=== PATIENT | male | born 1935 | race Hispanic/Latino ===

== ENCOUNTER 2019-03-14 15:56 | Outpatient (CLI) | payer OTHER ==
[2019-03-14 16:32] LABS: PLATELET COUNT 254 K/uL (142-355)
[2019-03-14 17:07] LABS: POTASSIUM 4.1 mmol/L (3.6-5.2)
== END 2019-03-14 20:17 | disposition home or self-care (01) ==
LOC: LABW 15:56
PROVIDERS: Internal Medicine
DX: Z00.00 Encounter for general adult medical examination without abnormal findings (principal); Z79.899 Other long term (current) drug therapy
CPT/HCPCS: 36415; 80053; 80061; 82306; 82607; 84153; 84443; 85027

== ENCOUNTER 2020-02-21 15:55 | Outpatient (CLI) | payer BC | END 2020-02-21 23:19 | disposition home or self-care (01) | LOC: LABW 15:55 | DX: Z00.00 Encounter for general adult medical examination without abnormal findings (principal); Z12.5 Encounter for screening for malignant neoplasm of prostate; E03.9 Hypothyroidism, unspecified | CPT/HCPCS: 36415; 82306; 84153; 84439; 84443 ==

== ENCOUNTER 2020-03-03 18:15 | Outpatient (CLI) | payer OTHER | END 2020-03-03 19:14 | disposition home or self-care (01) | LOC: RAD 18:15 | DX: Z00.00 Encounter for general adult medical examination without abnormal findings (principal) | CPT/HCPCS: 81000 ==

== ENCOUNTER 2020-09-05 11:52 | Emergency (ER) | payer OTHER ==
[~2020-09-05] VITALS: Ht 167.6 cm; Wt 69.4 kg
[2020-09-05 12:10] VITALS: TEMP 98.5
[2020-09-05 12:56] LABS: PLATELET COUNT 233 K/uL (142-355)
[2020-09-05 13:11] LABS: PARTIAL THROMBOPLASTIN TIME 28.1 SECONDS (24.5-33.6)
[2020-09-05 13:46] VITALS: BP 133/85
== END 2020-09-05 13:57 | disposition home or self-care (01) ==
LOC: ED 11:52
PROVIDERS: Family Medicine
DX: I63.9 Cerebral infarction, unspecified (principal); I10 Essential (primary) hypertension
CPT/HCPCS: 36415; 80053; 85027; 85610; 85730; 96374; 99284; J0360

== ENCOUNTER 2020-09-17 10:35 | Emergency (ER) | payer OTHER ==
[~2020-09-17] VITALS: Ht 167.6 cm; Wt 69.4 kg
[2020-09-17 10:39] VITALS: TEMP 98
[2020-09-17 11:24] LABS: PLATELET COUNT 190 K/uL (142-355)
[2020-09-17 11:30] LABS: POTASSIUM 3.8 mmol/L (3.6-5.2)
[2020-09-17 12:12] VITALS: BP 156/82
== END 2020-09-17 13:55 | disposition short-term general hospital (02) ==
LOC: ED 10:35
PROVIDERS: Family Medicine
DX: R41.82 Altered mental status, unspecified (principal); R77.8 Other specified abnormalities of plasma proteins; Z11.52 Encounter for screening for COVID-19
CPT/HCPCS: 80053; 81000; 82550; 82553; 83605; 84484; 85027; 87635; 93005; 99284; U0003

== ENCOUNTER 2020-10-03 15:10 | Observation (INO) | payer OTHER ==
[2020-10-03] VITALS (7 sets, daily range): BP systolic 110–147; BP diastolic 45–68; TEMP 96.5–97.8; Ht 162.6 cm; Wt 61.3 kg
[~2020-10-03] VITALS: Ht 162.6 cm; Wt 61.3 kg
[2020-10-03 15:55] LABS: PLATELET COUNT 286 K/uL (142-355)
[2020-10-03 16:04] LABS: POTASSIUM 4.7 mmol/L (3.6-5.2); SODIUM 140 mmol/L (136-145)
[2020-10-03] MEDS ORDERED: ASA LOW DOSE81 MG PO (23:48)
[2020-10-03] MEDS ORDERED: LIPITOR80 MG PO (23:49)
[2020-10-03] MEDS ORDERED: CARV3.12 PO (23:50)
[2020-10-03] MEDS ORDERED: FURO20TA67 PO (23:50)
[2020-10-03] MEDS ORDERED: LISI20TA11 PO (23:51)
[2020-10-04] VITALS: BP 141/69; TEMP 98.7
[2020-10-04 04:00] VITALS: BP 146/79; TEMP 98.7
[2020-10-04 08:00] VITALS: BP 136/68; TEMP 98.3
[2020-10-04 11:34] LABS: PLATELET COUNT 210 K/uL (142-355)
[2020-10-04 11:47] LABS: POTASSIUM 4.5 mmol/L (3.6-5.2)
[2020-10-04 12:00] VITALS: BP 118/63; TEMP 98.7
[2020-10-04 16:00] VITALS: BP 97/52; TEMP 99
[2020-10-04 20:00] VITALS: BP 113/61; TEMP 98.8
[2020-10-05] VITALS: BP 92/46; TEMP 98.6
[2020-10-05 04:00] VITALS: BP 122/53; TEMP 99.6
[2020-10-05 08:00] VITALS: BP 98/53; TEMP 101.3
[2020-10-05 12:00] VITALS: BP 96/46; TEMP 101.2
[2020-10-05 16:00] VITALS: BP 91/42; TEMP 99.2
== END 2020-10-05 19:10 | disposition home health service (06) ==
LOC: ED 15:10 → MED/SURG 17:40
PROVIDERS: Family Medicine; ADMIT Internal Medicine; ATTEND Internal Medicine
DX: R55 Syncope and collapse (principal); R40.4 Transient alteration of awareness; N17.8 Other acute kidney failure; D72.828 Other elevated white blood cell count; I10 Essential (primary) hypertension; I49.3 Ventricular premature depolarization; Z86.73 Personal history of transient ischemic attack (TIA), and cerebral infarction without residual deficits
CPT/HCPCS: 36415; 51702; 80053; 80307; 81000; 84443; 84484; 85027; 87635; 93005; 94760; 96360; 99220; 99284; G0378; J2060; J2270; J3490; U0003